=== PATIENT | male | born 1955 | race Caucasian/White ===

== ENCOUNTER 2022-11-26 11:24 | Outpatient (CLI) | payer MEDICARE, SELFPAY ==
[2022-11-26 12:04] LABS: Appearance Urine Clear (Clear); Bilirubin Urine Negative (Negative); Blood Urine Negative (Negative); Color Urine Light Yellow (Yellow); Glucose Urine UA Negative (Negative); Ketones Urine Negative (Negative); Leukocyte Esterase Ur Negative (Negative); Nitrate Urine Negative (Negative); Protein Urine Negative (Negative)
[2022-11-26 12:05] LABS: Add Urine Microscopic? NO
[2022-11-26 13:11] LABS: Prostate Specific Antigen 1.2 ng/mL (< OR = 4.0); Thyroid Stimulating Hormone 3.29 uIU/mL (0.36-3.74); Vitamin B12 312 pg/mL (193-986)
[2022-11-27 15:38] LABS: Free T3 2.91 pg/mL (2.18-3.98)
[2022-11-29 16:51] LABS: RPR Screen Non-Reactive (Non-Reactive)
== END 2022-11-26 11:25 | disposition home or self-care (01) ==
PROVIDERS: PCP Internal Medicine; Visit Provider Internal Medicine
DX: N39.0 Urinary tract infection, site not specified (principal); R41.3 Other amnesia; N41.9 Inflammatory disease of prostate, unspecified
CPT/HCPCS: 36415; 81003; 82607; 84153; 84439; 84443; 84481; 86038; 86592; 87077; 87086; 87088; 87186

== ENCOUNTER 2022-11-29 08:13 | Outpatient (CLI) | payer MEDICARE, SELFPAY ==
--- NOTE | ~2022-11-29 | MR_ITS ---
MRI of the brain Clinical History: Vertigo Technique: Axial and sagittal T1-weighted images were acquired. These were followed by axial T2-weigh bre, diffusion weighted, gradient, and FLAIR images. Coronal thin cut T1-weighted and T2-weighted dangelo ges, and thin cut axial T2-weighted images were acquired through the internal auditory canals. Findings: No significant signal abnormality seen in the brain parenchyma. No acute infarct, intracran ial hemorrhage, or mass lesion identified. Ventricles and subarachnoid spaces are unremarkable. Orbits are unremarkable. Paranasal sinuses and m astoid air cells are clear. Major intracranial flow voids appear intact. Sagittal midline structures appear intact. No abnormal mass lesion seen at the internal auditory canals or cerebellopontine angle regions. IMPRESSION: Unremarkable exam. Consider postcontrast imaging to further evaluate for any possibility of small aco ustic neuroma. Reviewed, dictated and finalized at [facility]. IMPRESSION: Unremarkable exam. Consider postcontrast imaging to further evaluate for any po ssibility of small acoustic neuroma.
== END 2022-11-29 08:14 | disposition home or self-care (01) ==
LOC: CHSIMG 08:14
PROVIDERS: PCP Internal Medicine; Visit Provider Internal Medicine
DX: R42 Dizziness and giddiness (principal)
CPT/HCPCS: 70551

== ENCOUNTER 2023-05-20 14:50 | Outpatient (CLI) | payer MEDICARE, SELFPAY ==
--- NOTE | ~2023-05-20 | XR_ITS ---
EXAMINATION: XR shoulder LT min 2V DATE: 05/20/2023 15:14 INDICATION: Left shoulder pain. TECHNIQUE: 4 views of left shoulder were obtained. COMPARISON: None. FINDINGS: Bone alignment is normal. No fracture. There is mild osteoarthritis of glenohumeral joint a nd moderate osteoarthritis of acromioclavicular joint. There are surgical clips in left neck. IMPRESSION: 1. Polyarticular osteoarthritis. Reviewed, dictated and finalized at location E. 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
== END 2023-05-20 14:51 | disposition home or self-care (01) ==
PROVIDERS: PCP Internal Medicine; Visit Provider Internal Medicine
DX: M19.012 Primary osteoarthritis, left shoulder (principal); M25.512 Pain in left shoulder
CPT/HCPCS: 73030

== ENCOUNTER 2023-05-21 08:23 | Outpatient (CLI) | payer MEDICARE, SELFPAY ==
--- NOTE | ~2023-05-21 | MR_ITS ---
MRI of the left shoulder Technique: Axial proton-density fat-sat images, coronal proton density fat-sat and T2 fat-sat images, and sagittal T1-weighted and T2 fat-sat images were acquired. Clinical History: Pain Findings: There is moderate AC joint degenerative change. No significant subchondral spur. Coracoclav icular, coracoacromial, and coracohumeral ligaments are probably intact. Supraspinatus and infraspinatus tendons are intact, without partial or full-thickness tear. There is mild tendinosis. Subscapularis tendon is intact with mild tendinosis. Tendon of the long head of the biceps is intact, probable focal perching at the superior aspect of the bicipital groove. There is probable degenerative tear of the superior labrum. Remainder of the labrum is intact. There is thickening and increased signal of the inferior glenohumeral ligament. No degenerative luna e or effusion of the glenohumeral joint. No fluid distention of the subacromial/subdeltoid bursa. No muscle atrophy or edema. Impression: Probable degenerative tear of the superior labrum. Thickening and increased signal inferior glenohumeral ligament could reflect before meals capsulitis. Correlate clinically. Moderate AC joint degenerative change. Probable focal perching of the biceps tendon at the superior aspect of the bicipital groove. Reviewed, dictated and finalized at [facility]. 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 Thickening and increased signal inferior glenohumeral ligament could reflect be fore meals capsulitis. Correlate clinically. Moderate AC joint degenerative change. Probable focal perching of the biceps tendon at the superior aspect of the bici pital groove.
== END 2023-05-21 08:24 | disposition home or self-care (01) ==
LOC: CHSIMG 08:24
PROVIDERS: PCP Internal Medicine; Visit Provider Internal Medicine
DX: M25.512 Pain in left shoulder (principal)
CPT/HCPCS: 73221

== ENCOUNTER 2023-06-15 10:00 | Outpatient (RCR) | payer MEDICARE, SELFPAY ==
--- NOTE | 2023-06-15 10:29 | PTOPEVAL1 ---
Assessment and note entered by Len Marquez Evaluation Information Assessment Status Evaluation Diagnosis left shoulder pain Onset 04/01/23 Subjective Information Pt. reports that he injured the shoulder in early April. He states that he has prior hx of left shoulder pain. He has undergone MRI, which he states showed a rotator cuff tear. He states that any activity reaching overhead or with attempting to wash his hair will trigger his pain. He reports that the pain has been improving in the recent weeks, but still has concern with inability to reach overhead. He states that he currently has little trouble sleeping, but did have a lot of difficulty sleeping during the initial injury. He reports that his goal for therapy is to reduce his pain and be able to reach overhead with more mobility. Reported Pain Level Pain Score 2: Self Report Assessment PT Clinical Summary Pt. 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 He currently presents with impaired ROM, impaired strength, impaired postural awareness, and pain. Continued skilled PT is indicated in order to improve these areas to allow the pt. to be able to perform overhead activities with less discomfort and improved efficiency. Plan of Care Interventions Electrical Stimulation,Hot Pack/Cold Pack,Manual Therapy,Paraffin Bath,Patient/Caregiver Educati, Therapeutic Activities,Therapeutic Exercise PT Services Indicated Yes Treatment Frequency and 2x/week x 8 visits Duration These treatments will address the objective and functional deficits as defined above. The patient will be advanced safely and appropriately in order for the patient to progress towards his/her prior level of function. Additional exercises will be introduced and as well as a comprehensive home exercise program upon discharge, if needed, ?to ensure carryover of functional gains achieved in the clinic. This treatment plan has been reviewed and agreement upon by the patient.
--- NOTE | 2023-06-15 10:52 | OPREHPOC ---
Outpatient Therapy Plan of Care This is a Multidisciplinary Plan of Care that may contain components documented by all disciplines (PT, OT, and ST.) PT Problem 1 PT Problem #1 Knowledge Deficit PT Goal 1 Goal Pt. will be independent with a HEP addressing strength, ROM and postural awareness Target Visit 3 PT Problem 2 PT Problem #2 Pain PT Goal 1 Goal Pt. will report pain levels at 1/10 at worst with all overhead activities. Target Visit 8 PT Problem 3 PT Problem #3 Impaired Range of Motion PT Goal 1 Goal -Pt. will achieve 170 degrees active left shoulder flexion without pain -Pt. will be able to reach the CT junction with the left arm demonstrating improved ER ROM. Target Visit 8 PT Problem 4 PT Problem #4 Impaired Strength PT Goal 1 Goal Pt. will be able to lift a 10# object overhead with the left u.e. without pain for 10 reps. Target Visit 8
--- NOTE | 2023-07-10 10:56 | OPREHPOC ---
Outpatient Therapy Plan of Care This is a Multidisciplinary Plan of Care that may contain components documented by all disciplines (PT, OT, and ST.) PT Problem 1 PT Problem #1 Knowledge Deficit PT Goal 1 Goal Pt. will be independent with a HEP addressing strength, ROM and postural awareness Target Visit 3 Progress Met PT Problem 2 PT Problem #2 Pain PT Goal 1 Goal Pt. will report pain levels at 1/10 at worst with all overhead activities. Target Visit 8 Progress Met PT Problem 3 PT Problem #3 Impaired Range of Motion PT Goal 1 Goal -Pt. will achieve 170 degrees active left shoulder flexion without pain. not met -Pt. will be able to reach the CT junction with the left arm demonstrating improved ER ROM. met Target Visit 8 Progress Partially Met PT Problem 4 PT Problem #4 Impaired Strength PT Goal 1 Goal Pt. will be able to lift a 10# object overhead with the left u.e. without pain for 10 reps. Target Visit 8 Progress Met
--- NOTE | 2023-07-10 10:56 | PTOPDC ---
Assessment and note entered by JT File, PT Evaluation Information Assessment Status Discharge Diagnosis left shoulder pain Onset 04/01/23 Subjective Information patient reports he feels good today. he reports he has no pain in the L shoulder. he reports he is able to complete home and work tasks without pain . Reported Pain Level Pain Score 0: Self Report Assessment PT Clinical Summary mr. foley presents to skilled PT today with no pain in the L shoulder. he displays increased rom and strength of the L shoulder. as of this date, he has met all goals for skilled PT, except L shoulder active flexion goal. however, he is only 5 degrees from achieving this goal. patient is at the end of his POC. he will be DC'd from skilled PT services today, and would benefit from continued independent HEP. Plan of Care PT Services Indicated Yes
== END 2023-07-10 20:00 | disposition home or self-care (01) ==
LOC: CHSPT 10:00
PROVIDERS: PCP Internal Medicine; Visit Provider Internal Medicine
DX: M25.512 Pain in left shoulder (principal); M25.612 Stiffness of left shoulder, not elsewhere classified; M75.42 Impingement syndrome of left shoulder; M19.012 Primary osteoarthritis, left shoulder
CPT/HCPCS: 97014; 97110; 97112; 97161; G0283

== ENCOUNTER 2024-02-09 15:58 | Outpatient (CLI) | payer MEDICARE, SELFPAY ==
--- NOTE | ~2024-02-09 | XR_ITS ---
EXAM: XR knee LT 3V DATE: 02/09/2024 16:32 HISTORY: L KNEE PAIN, twisted knee 2 days ago and heard pop noise . COMPARISON: 02/15/2014. FINDINGS: Slightly decreased mineralization. No fracture or dislocation. No lytic or blastic lesion. Mild medial joint space narrowing. Mild tricompartmental osteophytosis. Quadriceps enthesopathy. Min imal joint fluid. Chronic ossific fragment adjacent to the medial condyle possibly soft tissue calcif ication/ossification or old avulsion fracture fragment. No erosion or periosteal change. Soft tissues within normal limits. IMPRESSION: No acute osseous finding the left knee. Mild osteopenia. Mild tricompartmental osteoarthr itis. Mild left knee joint effusion. Reviewed, dictated and finalized at location K. IMPRESSION: No acute osseous finding the left knee. Mild osteopenia. Mild trico mpartmental osteoarthritis. Mild left knee joint effusion.
== END 2024-02-09 15:59 | disposition home or self-care (01) ==
LOC: CHSIMG 16:00
PROVIDERS: PCP Internal Medicine; Visit Provider Internal Medicine
DX: M25.562 Pain in left knee (principal); M17.0 Bilateral primary osteoarthritis of knee; M25.462 Effusion, left knee; M85.88 Other specified disorders of bone density and structure, other site
CPT/HCPCS: 73562

== ENCOUNTER 2024-02-11 07:31 | Outpatient (CLI) | payer MEDICARE, SELFPAY ==
--- NOTE | ~2024-02-11 | MR_ITS ---
EXAMINATION: MR knee LT wo con DATE: 02/11/2024 08:32 INDICATION: Left knee pain post twisting injury TECHNIQUE: Magnetic resonance imaging (MRI) of the left knee was performed without intravenous contra st. Sequences included coronal PD-weighted FSE, coronal PD-weighted FS FSE, sagittal T2-weighted FSE , sagittal PD-weighted FS FSE and axial PD weighted fat saturated FSE. COMPARISON: None. FINDINGS: Medial compartment: Radial tear near the posterior root of the posterior horn of the medial meniscus. Chondral swelling a nd deep chondral fissuring along the lateral margin of the anterior weightbearing medial femoral cond yle with underlying small central subchondral osteophyte. Lateral compartment: Lateral meniscus is normal. Articular cartilage is normal. Patellofemoral compartment: Deep chondral ulceration at the patellar apical ridge and lateral patellar facet, the latter with mil d underlying cortical irregularity and foci of mild subarticular edema-like signal changes. Additiona l partial-thickness chondral ulceration and deep fissuring with a couple tiny foci of subarticular cy stlike changes at the medial trochlea. Ligaments and tendons: Anterior and posterior cruciate ligaments are normal. The medial collateral ligament and fibular girish ateral ligament complex are normal. Mild tendinopathy distal quadriceps and proximal patellar tendons . The visualized medial and lateral hamstring tendons as well as the iliotibial band are normal. Fluid: Minimal left knee joint effusion. No loose osteochondral bodies identified. Osseous/other: A few small intraosseous ganglion cyst underlying the footplate of the anterior cruciate ligament. No rmal marrow signal throughout secondary placement degenerative subarticular signal changes. No fractu re or pathologic marrow replacing process. IMPRESSION: 1. Full-thickness radial tear at the posterior horn of the medial meniscus. 2. Mild osteoarthritis with regions of high-grade chondral malacia in patellofemoral and to lesser de gree medial compartments. Reviewed, dictated and finalized at location B. IMPRESSION: 1. Full-thickness radial tear at the posterior horn of the medial meniscus. 2. Mild osteoarthritis with regions of high-grade chondral malacia in patellofe moral and to lesser degree medial compartments.
== END 2024-02-11 07:32 | disposition home or self-care (01) ==
LOC: CHSIMG 07:34
PROVIDERS: PCP Internal Medicine; Visit Provider Internal Medicine
DX: M25.562 Pain in left knee (principal); S83.242A Other tear of medial meniscus, current injury, left knee, initial encounter; M17.12 Unilateral primary osteoarthritis, left knee; M94.262 Chondromalacia, left knee
CPT/HCPCS: 73721

== ENCOUNTER → 2024-06-07 13:29 | Outpatient (REF) | payer MEDICARE, SELFPAY | LOC: ANHLAB 13:29 | PROVIDERS: PCP Internal Medicine; Visit Provider Plastic Surgery | DX: L91.8 Other hypertrophic disorders of the skin (principal) | CPT/HCPCS: 88305 ==

== ENCOUNTER 2024-06-30 10:00 | Outpatient (CLI) | payer MEDICARE, SELFPAY ==
--- NOTE | 2024-06-30 10:13 | ECG_ITS ---
Test Date: 2024-06-30 10:24:50 Measurements Intervals [place] Rate: 70 P: 52 DE: 184 QRS: -37 QRSD: 166 T: -7 QT: 395 QTc: 428 Interpretive Statements SINUS RHYTHM MARKED LEFT AXIS DEVIATION [QRS AXIS < -30] RIGHT BUNDLE BRANCH BLOCK [120+ ms QRS DURATION, UPRIGHT V1, 40+ ms S IN I/aVL/V4/V5/V6] WARNING: DATA QUALITY MAY AFFECT INTERPRETATION No previous ECG available for comparison Electronically Signed On 06-30-2024 11:46:57 DRUG WORKER by Facundo Tidwell M.D.
--- OUTSIDE RECORDS SUMMARY | 2024-06-30 10:49 | XMS_ITS | Encounter Summary ---
Author Organization [facility] Healthcare Address [address] [place] [address] Care Team Providers Care Retail Manager Name Role Phone Antonio Ren MD Primary Care Provider [phone] Reason for Visit * Reason Onset Date Comments Med Refill 07/11/2020 Encounter Details Date Type Department Care Team (Late st Contact Info) Description 07/11/2020 Telephone [facility] [place] [facility] [address] [facility] [address] [place] [address] Owen Laguerre MD [address] [place] [address] Med Refill Social History Tobacco Use Types Packs/Day Years Used Date Smoking Tobacco: Former Smokeless Tobacco: Never Alcohol Use Standard Drinks/Week Comments No 0 (1 standard drink = 0.6 oz pur e alcohol) Sex and Gender Information Value Date Recorded Sex Assigned at Not on file 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 Author CCM Chronic Pain Care Plan Chronic Care Management Improving( 9:34 AM CDT) No Carey Keyes RN Note: Problem: Chronic Pain Goals: 1. Minimize further functional decline 2. Maximize quality of life 3. Control pain Strategies: - Activity/exercise program recommendation - Conservative stepwise pain medicine strategy with multi-disciplinary approach - Recommend healthy lifestyle strategies and compensatory methods as needed documented as of this encounter Visit Diagnoses Not on filedocumented in this encounter Discontinued Medications Medication Sig Discontinue Reason Start Date End Da te gabapentin (NEURONTIN) 600 mg tablet Take 1 tablet (600 mg total) by mouth 3 (three) times a day Reorder 09/14/2019 07/11/2020 documented as of this encounter Care Teams Retail Manager Relationship Specialty Start Date End Date Antonio Ren MD [address] [place] [address] PCP - General 07/29/16 documented as of this encounter
--- OUTSIDE RECORDS SUMMARY | 2024-06-30 10:49 | XMS_ITS | Encounter Summary ---
Author Organization [facility] Healthcare Address [address] [place] [address] Care Team Providers Care Instrumentation Engineering Technician Name Role Phone Antonio Ren MD Primary Care Provider [phone] Reason for Visit * Reason Onset Date Comments CALL BACK 11/03/2017 Encounter Details Date Type Department Care Team (Late st Contact Info) Description 11/03/2017 Telephone [facility] [place] [facility] [address] [facility] [address] [place] [address] Owen Laguerre MD [address] [place] [address] CALL BACK Social History Tobacco Use Types Packs/Day Years Used Date Smoking Tobacco: Former Sex and Gender Information Value Date Recorded Sex Assigned at Not on file 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
--- OUTSIDE RECORDS SUMMARY | 2024-06-30 10:49 | XMS_ITS | Clinical Summary ---
Author Organization [facility] Address [address] [place] [address] Care Team Providers Care Percussion Tuner Name Role Phone Antonio Ren MD Primary Care Provider + [phone] Allergies Active Allergy Reactions Criticality Noted Date Comments Penicillins Unknown 06/19/2010 Medications aspirin 81 mg tablet Take 1 tablet (81 mg total) by mouth daily Active tamsulosin (FLOMAX) 0.4 mg extended release capsule Take 2 capsules (0.8 mg total) by mouth daily Active omeprazole (PriLOSEC) 40 mg capsule Take 1 capsule (40 mg total) by mouth daily 2 capsules daily 1 Active pravastatin (PRAVACHOL) 80 mg tablet Take 1 tablet (80 mg total) by mouth daily Active cholecalciferol (VITAMIN D-3) 1,000 unit capsule Take 1 capsule (1,000 Units total) by mouth daily Active celecoxib (CeleBREX) 200 mg capsule Take 1 capsule (200 mg total) by mouth daily 9 Active gabapentin (NEURONTIN) 600 mg tablet TAKE ONE TABLET BY MOUTH THREE TIMES A DAY 270 tablet 1 2 Active Myrbetriq 25 mg tablet extended release 24 hr TAKE 1 TABLET (25 MG) BY MOUTH EVERY DAY SWALLOWING WHOLE WITH WATER . DO NOT CRUSH, CHEW, DIVIDE 3 Active magnesium gluconate 200 mg tabletIndicatio ns:Cramps Take 1 tablet (200 mg total) by mouth daily Active traMADoL (ULTRAM) 50 mg tablet Take 1 tablet (50 mg total) by mouth every 6 (six) hours as needed for pain 10 tablet 4 Active ciprofloxacin (CIPRO) 500 mg tablet Take 1 tablet (500 mg total) by mouth 2 (two) times a day 6 tablet 4 Active Active Problems Problem Noted Date Diagnosed Date Urethral stricture 01/21/2024 Encounter for follow-up surveillance of colon ca ncer 12/11/2022 Chronic bilateral low back pain without sciatica 12/01/2019 Flores's esophagus with dysplasia 08/10/2018 Overview (08/10/2018): Added automatically from request for surgery [id number] Low back pain with right-sided sciatica 09/24/19 Cervical radiculopathy 10/03/2016 Stenosis, cervical spine 10/03/2016 Lumbar spondylosis 08/29/2016 Cervicalgia 04/09/2016 Thoracic back pain 04/09/2016 Chronic pain 04/04/2016 Surgical History Surgery Date Site/Laterality Comments MS NJX AA&/STRD TFRML EPI LUMBAR/SACRAL 1 LEVEL Corticosteroid Inj Transforaminal Approach Lumbar W/ Fluoroscopic Guidance - Right L4-L5 (Added by TW Conv) MS INJ CERV/THORAC,W/WO CNTRST Corticosteroid Injection Interlaminar Approach Cervical - (Added by TW Conv) MS INJ CERV/THORAC,W/WO CNTRST Corticosteroid Injection Interlaminar Approach Cervical - (Added by TW Conv) MS INJ LUMBAR/SACRAL,W/WO CNTRST Corticosteroid Injection Interlaminar Approach Lumbar - (Added by TW Conv) MS NJX AA&/STRD TFRML EPI CERVICAL/THORACIC 1 LEVEL Corticosteroid Inj Transforaminal Approach Cervical W/ Fluoroscopic Guidance - cervical epidural steroid injection with theracath (Added by TW Conv) FOOT SURGERY Left 2013, 2014 ABDOMINAL HERNIA REPAIR TONSILLECTOMY Medical History Medical History Date Comments Chronic pain GERD (gastroesophageal reflux disease) SOB (shortness of breath) dust i nduced BPH (benign prostatic hyperplasia) Low back pain HLD (hyperlipidemia) Flores esophagus Colon polyp Kidney stone Traumatic injury Family History Medical History Relation Name Comments Arthritis Father Family history of arthritis - (Added by TW Conv) Asthma Father Family history of asthma - (Added by TW Conv) Colon cancer Maternal Grandmother Heart attack Mother Family history of myocardial infarction - (Added by TW Conv) Arthritis Other 1 Family history of arthritis - Relation: Grandparent (Added by Groxis Conv) Colon cancer Other 1 Cancer Other 2 Family history of malignant neoplasm - Relation: Grandparent (Added by Groxis Conv) Relation Name Status Comments Father Maternal Grandmother Mother Other 1 Maternal Aunt Other 2 Social History Tobacco Use Types Packs/Day Years Used Date Smoking Tobacco: Former Smokeless Tobacco: Never Tobacco Cessation:Counseling Given: Not Answered Alcohol Use Standard Drinks/Week Comments No 0 (1 standard drink = 0.6 oz pur e alcohol) AUDIT-C Answer Date Recorded Q1: How often do you have a drink containing alcohol? Never 02/17/2024 Q2: How many drinks containi ng alcohol do you have on a typical day when you are drinking? Patient does not drink Q3: How often do you have si x or more drinks on one occasion? Never 02/17/2024 Hunger Vital Sign Answer Date Recorded Within the past 12 months, y ou worried that your food would run out before you got the money to buy more. Never true 08/05/19 24 Within the past 12 months, t he food you bought just didn't last and you didn't have money to get more. Never true 08/05/2023 Personal Safety Answer Date Recorded Have you ever been in or are you currently in a harmful physical or emotional relationship or is someone making you feel afraid or unsafe? 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 Gender Identity Not on file Sexual Orientation Not on file Obstetrics History Last Filed Vital Signs Vital Sign Reading Time Taken Comments Blood Pressure 140/100 02/17/2024 11:25 AM CDT Pulse 74 02/17/2024 11:25 AM CDT Temperature 36.9 ??C (98.5 ??F) 02/17/2024 10:15 AM C DT Respiratory Rate 24 02/17/2024 11:25 AM CDT Oxygen Saturation 100% 02/17/2024 11:25 AM CDT Inhaled Oxygen Concentration - - Weight 141.5 kg (312 lb) 02/17/2024 9:25 AM CDT Height 182.9 cm (6') 02/17/2024 9:25 AM CDT Body Mass Index 42.31 02/17/2024 9:25 AM CDT Plan of Treatment Health Maintenance Due Date Last Done Comments Depression Screening 1955 Hepatitis C Screening 1955 Hepatitis B Screening 02/02/1972 Abdominal Aortic Aneurysm (A AA) Screen 2019 04/08/2016, 09/22/2014 Well Visit 65+ 2019 Pneumococcal vaccine 65+ (3 of 3 - PPSV23 or PCV20) 03/07/2021 03/07/2016, 01/25/2014 DTaP/Tdap/Td Vaccine (2 - Td or Tdap) 06/20/2023 06/20/2013 Influenza Vaccine (#1) 2024 , 03/29/2018, 01/28/2017, Additional history exists Fall Risk Assessment 02/16/2025 02/17/2024 Colon Cancer Screening-Colonoscopy 02/25/2033 02/25/2023 Zoster Vaccine Completed 11/18/2018, 10/2018, 02/15/2014 Colon Cancer Screening-CT Colonography Discontinued 02/25/2023 Colon Cancer Screening-DNA Stool Discontinued 02/26/20 Colon Cancer Screening-FIT Discontinued 02/25/2023 Colon Cancer Screening-Sigmoidoscopy Discontinued 02/25/2023 Goals Goal Patient Goal Type Associated Problems Recent Progress Patient-Stated? Author CCM Chronic Pain Care Plan Chronic Care Management Improving( 9:34 AM CDT) No Sulema staples, Carey Johnston, RN Note: Problem: Chronic Pain Goals: 1. Minimize further functional decline 2. Maximize quality of life 3. Control pain Strategies: - Activity/exercise program recommendation - Conservative stepwise pain medicine strategy with multi-disciplinary approach - Recommend healthy lifestyle strategies and compensatory methods as needed Procedures Procedure Name Priority Date/Time Associated Diagnosis Comments COLONOSCOPY 02/25/2023 3:[address] ABDOMEN PELVIS W WO CONTRAST Routine 04/08/2016 4:35 PM SEAMING MACHINE OPERATOR from Last 3 Months or Most Recently Relevant to Health Maintenance Results * COLONOSCOPY (02/25/2023 3:39 PM CDT) Anatomical Region Laterality Modality Other Narrative Procedure Note Roland Cerrato MD - 02/25/2023 3:39 PM CDT ENDOSCOPY LAB Patient Name: Jon Martin Procedure Date: 02/25/2023 3:39 PM Date of : 1955 Admit Type: Outpatient Age: 68 Gender: Male Attending MD: Roland Cerrato M.D. Room: [facility] ENDOSCOPY ROOM 04 Note Status: Finalized Procedure: Colonoscopy Indications: High risk colon cancer surveillance: Personalhistory of colonic polyps, Last colonoscopy 5 years ago Providers: Roland Cerrato M.D. Referring MD: Antonio Ren MD Medicines: Monitored Anesthesia Care Complications: No immediate complications. Estimated Blood Loss: Estimated blood loss: none. Procedure: Pre-Anesthesia Assessment: - Immediately prior to administration ofmedications, the patient was re-assessed for adequacy to receive sedatives. The benefits, risks and alternatives of theprocedure and sedation were discussed and informed consentwas obtained. All questions were answered. Please referto the signed informed consent document in the medical record. The scope was passed under direct vision.The [id number] was introduced through the anusand advanced to the cecum, identified by appendiceal orifice and ileocecal valve. The colonoscopy was performed without difficulty. The patient tolerated the procedure well. The quality of the bowel preparation was evaluated using the BBPS (BostonBowel Preparation Scale) with scores of: Right Colon = 3, Transverse Colon = 3 and Left Colon = 3 (entiremucosa seen well with no residual staining, smallfragments of stool or opaque liquid). The total BBPS score equals 9. Bowel prep was administered using a split dose. Findings: The perianal and digital rectal examinations were normal. Two sessile polyps were found in the transverse colon. The polypswere 6 to 8 mm in size. These polyps were removed with a cold snare.Resection and retrieval were complete. Multiple small-mouthed diverticula were found in the sigmoid colon. The exam was otherwise without abnormality on direct and retroflexion views. Impression: - Two 6 to 8 mm polyps in the transverse colon, removed with a cold snare. Resected andretrieved. - Diverticulosis in the sigmoid colon. - The examination was otherwise normal on directand retroflexion views. Recommendation: - Repeat colonoscopy in 5 years for surveillance. - Return to primary care physician as previously scheduled. - Call my nurses in the GI office at [phone] ([phone]) for your final pathology results in7 days. - . Attending Participation: I personally performed the entire procedure. Electronically signed by Roland Cerrato MD Roland Cerrato M.D. 02/25/2023 4:03:20 PM Number of Addenda: 0 Note Initiated On: 02/25/2023 3:39 PM us Roland Cerrato MD ENDOSCOPY PROCEDUR ES Final Result * CT Abdomen Pelvis W WO Contrast (04/08/2016 4:35 PM SEAMING MACHINE OPERATOR) Anatomical Region Laterality Modality Body N/A Computed Tomogra phy 04/08/2016 4:35 PM SEAMING MACHINE OPERATOR Narrative 04/09/2016 8:24 AM SEAMING MACHINE OPERATOR DATE OF EXAM: ??Nov ??8 2015 ??4:35PM Acc#: ??[id number] ??ECT 0108 - CT IVP Urogram W/WO ?? DIAGNOSIS: ??BENIGN PROSTATIC HYPERPLASIA WITH LOWER CLINICAL HISTORY: ?? BENIGN PROSTATE HYPERTROPHY RESULT: \ CT UROGRAM CLINICAL HISTORY 61-year-old man with benign prostatic hypertrophy, constant urinary tract infections every three months. Examination performed using standard CT urography with 125 mL of Optiray 240. FINDINGS Comparison is made with the study of 09/22/2014. ??Normal wringer and setter radiograph. Precontrasted images demonstrate a calculus near the lower pole of the right kidney, non-obstructive and similar to previous measuring between 3 and 4 mm in size. Calcific density seen within the right colon. No gallstones are seen. Following contrast bolus, the visualized portions of the liver and spleen are normal. The pancreas is atrophic. The gallbladder is normal. Normal adrenal glands. The nephrograms are symmetric and normal without mass effect or hydronephrosis. The perinephric soft tissues are normal. Normal vascular enhancement is seen with minor atherosclerotic changes. In the pelvis, there is evidence of sigmoid diverticulosis. Calcifications are seen within the prostate which is mildly prominent. The urinary bladder is underfilled on the initial imaging. Delayed imaging demonstrates excretion from both kidneys without hydronephrosis. No free fluid or free air is seen. The ureters are normal in course and there is prompt opacification of a nondistended urinary bladder. 3D images confirm a non-obstructive renal system. IMPRESSION: ?\ NON-OBSTRUCTIVE CALCULUS STABLE AT THE LOWER POLE OF THE RIGHT KIDNEY. CALCIFIC DENSITIES WITHIN THE PROSTATE WHICH IS MILDLY ENLARGED. THE URINARY BLADDER IS UNDER FILLED WITH THE INABILITY TO MAKE DIAGNOSTIC VALUE OF THE STUDY WITH REFERENCE TO THE BLADDER. INSTRUCTIONAL AIDE: ??DM2 TRANSCRIBE DATE/TIME: ??Nov ??8 2015 ??8:03P RADIOLOGIST: ??ZAY HERNÁNDEZ M.D. ??READ ON: ??Nov ??2015 ??5:04P ORDERING DR: FIDENCIO EAST M.D. ? THIS DOCUMENT HAS BEEN ELECTRONICALLY SIGNED BY: ??ZAY HERNÁNDEZ M.D. ??ON: ??Nov ??2015 ??8:23A Attending: ??RCUZITO, ??FIDENCIO Requesting: ??CRUZITO, ??FIDENCIO Requesting Fax: ??[phone] Attending Fax: ??[phone] Attending ID: ??[id number] Requesting ID: ??[id number] Report To 1 ID: ?? Report To 1 Name: ??, ?? Report To 1 FAX: ??-- Report To 2 ID: ?? Report To 2 Name: ??, ?? Report To 2 FAX: ??-- NextGen Order #: ?? Procedure Note Provider, MD Whitney - 10/06/2016 DATE OF EXAM: Apr 08 2016 4:35PM Acc#: [id number] ECT 0108 - CT IVP Urogram W/WO DIAGNOSIS: BENIGN PROSTATIC HYPERPLASIA WITH LOWER CLINICAL HISTORY: BENIGN PROSTATE HYPERTROPHY RESULT: \ CT UROGRAM CLINICAL HISTORY 61-year-old man with benign prostatic hypertrophy, constant urinary tract infections every three months. Examination performed using standard CT urography with 125 mL of Optiray 240. FINDINGS Comparison is made with the study of 09/22/2014. Normal wringer and setter radiograph. Precontrasted images demonstrate a calculus near the lower pole of the right kidney, non-obstructive and similar to previous measuring between 3 and 4 mm in size. Calcific density seen within the right colon. No gallstones are seen. Following contrast bolus, the visualized portions of the liver and spleen are normal. The pancreas is atrophic. The gallbladder is normal. Normal adrenal glands. The nephrograms are symmetric and normal without mass effect or hydronephrosis. The perinephric soft tissues are normal. Normal vascular enhancement is seen with minor atherosclerotic changes. In the pelvis, there is evidence of sigmoid diverticulosis. Calcifications are seen within the prostate which is mildly prominent. The urinary bladder is underfilled on the initial imaging. Delayed imaging demonstrates excretion from both kidneys without hydronephrosis. No free fluid or free air is seen. The ureters are normal in course and there is prompt opacification of a nondistended urinary bladder. 3D images confirm a non-obstructive renal system. IMPRESSION: \ NON-OBSTRUCTIVE CALCULUS STABLE AT THE LOWER POLE OF THE RIGHT KIDNEY. CALCIFIC DENSITIES WITHIN THE PROSTATE WHICH IS MILDLY ENLARGED. THE URINARY BLADDER IS UNDER FILLED WITH THE INABILITY TO MAKE DIAGNOSTIC VALUE OF THE STUDY WITH REFERENCE TO THE BLADDER. INSTRUCTIONAL AIDE: JENNIFER TRANSCRIBE DATE/TIME: Apr 08 2016 8:03P RADIOLOGIST: ZAY HERNÁNDEZ M.D. READ ON: Apr 08 2016 5:04P ORDERING DR: FIDENCIO EAST M.D. THIS DOCUMENT HAS BEEN ELECTRONICALLY SIGNED BY: ZAY HERNÁNDEZ M.D. ON: Apr 09 2016 8:23A Attending: FIDENCIO EAST Requesting: FIDENCIO EAST Requesting Attending Attending ID: [id number] Requesting ID: [id number] Report To 1 ID: Report To 1 Name: , Report To 1 FAX: -- Report To 2 ID: Report To 2 Name: , Report To 2 FAX: -- NextGen Order #: us Historical Provider MD MOREJON CT PROCEDURES Final R esult from Last 3 Months or Most Recently Relevant to Health Maintenance Insurance [employer] [facility] [employer] OPEN ACCESS MEDICARE COMMERCIAL GENERIC MEDICARE INDIVIDUAL ASSURANCE MEDICARE INDIVIDUAL ASSURANCE Advance Directives For more information, please contact: [phone] * Full Code (Latest Code Status on File) Date Activated Date Inactivated Comments 02/25/2023 3:00 PM 02/25/2023 8:51 PM * Full Code Date Activated Date Inactivated Comments 06/19/2022 1:10 PM 02/25/2023 1:59 PM * Full Code Date Activated Date Inactivated Comments 10/24/2021 10:01 AM 10/24/2021 4:01 PM * Full Code Date Activated Date Inactivated Comments 08/17/2018 9:23 AM 08/17/2018 4:25 PM Care Teams Percussion Tuner Relationship Specialty Start Date End Date Antonio Ren MD [address] [id number] PCP - General 07/29/16
--- OUTSIDE RECORDS SUMMARY | 2024-06-30 10:49 | XMS_ITS | Encounter Summary ---
Author Organization [facility] Healthcare Address [address] [place] [address] Care Team Providers Care Senior Water/Wastewater Engineer Name Role Phone Antonio Ren MD Primary Care Provider + [phone] Encounter Details Date Type Department Care Team (Late st Contact Info) Description 10/16/2023 Community Orders [facility] [place] [address] [place] [id number] Social History Tobacco Use Types Packs/Day Years Used Date Smoking Tobacco: Former Smokeless Tobacco: Never Alcohol Use Standard Drinks/Week Comments No 0 (1 standard drink = 0.6 oz pur e alcohol) AUDIT-C Answer Date Recorded Q1: How often do you have a drink containing alcohol? Never 08/05/2023 Q2: How many drinks containi ng alcohol do you have on a typical day when you are drinking? Patient does not drink Q3: How often do you have si x or more drinks on one occasion? Never 08/05/2023 Hunger Vital Sign Answer Date Recorded Within [...] making you feel afraid or unsafe? 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 Author CCM Chronic Pain Care Plan Chronic Care Management Improving( 9:34 AM CDT) No Sulema staples, Carey Johnston RN Note: Problem: Chronic Pain Goals: 1. Minimize further functional decline 2. Maximize quality of life 3. Control pain Strategies: - Activity/exercise program recommendation - Conservative stepwise pain medicine strategy with multi-disciplinary approach - Recommend healthy lifestyle strategies and compensatory methods as needed documented as of this encounter Visit Diagnoses Not on filedocumented in this encounter Care Teams Senior Water/Wastewater Engineer Relationship Specialty Start Date End Date Antonio Ren MD [address] [place] [address] PCP - General 07/29/16 documented as of this encounter
--- OUTSIDE RECORDS SUMMARY | 2024-06-30 10:49 | XMS_ITS | Referral Summary ---
Author Organization [facility] Address [address] [place] [address] Care Team Providers Care Dry Man Name Role Phone Antonio Ren MD Primary Care Provider + [phone] Allergies Active Allergy Reactions Criticality Noted Date [...] (08/10/2018): Added automatically from request for surgery [id number] Low back pain with right-sided sciatica 09/24/19 Cervical radiculopathy 10/03/2016 Stenosis, cervical spine 10/03/2016 Lumbar spondylosis 08/29/2016 Cervicalgia 04/09/2016 Thoracic back pain 04/09/2016 Chronic pain 04/04/2016 Social History Tobacco Use Types Packs/Day Years [...] on file Legal Sex Male 1:00 AM MEDICAL 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 Gender Identity Not on file Sexual Orientation Not on file Last Filed Vital Signs Vital Sign Reading [...] 02/17/2024 9:25 AM CDT Plan of Treatment Not on file Goals Goal Patient Goal Type Associated Problems [...] W WO CONTRAST Routine 04/08/2016 4:35 PM MEDICAL SONOGRAPHER from Last 3 Months or Most Recently Relevant to Health Maintenance Results * COLONOSCOPY (02/25/2023 3:39 PM CDT) Anatomical Region Laterality Modality Other Narrative Procedure Note Roland Cerrato MD - 02/25/2023 3:39 PM CDT ENDOSCOPY LAB Patient Name: Jon Martin Procedure Date: 02/25/2023 3:39 PM Date of : 1955 Admit Type: Outpatient Age: 68 Gender: Male Attending MD: Roland Cerrato M.D. Room: [facility] ENDOSCOPY ROOM 04 Note Status: Finalized Procedure: [...] The scope was passed under direct vision.The [id number] was introduced through the anusand advanced to [...] my nurses in the GI office at [phone] ([phone]) for your final pathology results in7 days. - . Attending Participation: I personally performed the entire procedure. Electronically signed by Roland Cerrato MD Roland Cerrato M.D. 02/25/2023 4:03:20 PM Number of Addenda: 0 Note Initiated On: 02/25/2023 3:39 PM Roland Cerrato MD ENDOSCOPY PROCEDUR ES Final Result * CT Abdomen Pelvis W WO Contrast (04/08/2016 4:35 PM MEDICAL SONOGRAPHER) Anatomical Region Laterality Modality Body N/A Computed Tomogra phy 04/08/2016 4:35 PM MEDICAL SONOGRAPHER Narrative 04/09/2016 8:24 AM MEDICAL SONOGRAPHER DATE OF EXAM: ??Nov ??2015 ??4:35PM Acc#: ??[id number] ??ECT 0108 - CT IVP Urogram W/WO ?? DIAGNOSIS: ??BENIGN PROSTATIC HYPERPLASIA WITH LOWER CLINICAL HISTORY: ?? BENIGN PROSTATE HYPERTROPHY RESULT: \ CT UROGRAM CLINICAL HISTORY 61-year-old man with benign prostatic hypertrophy, constant urinary tract infections every three months. Examination performed using standard CT urography with 125 mL of Optiray 240. FINDINGS Comparison is made with the study of 09/22/2014. ??Normal child development associate teacher radiograph. Precontrasted images demonstrate a calculus near [...] THE STUDY WITH REFERENCE TO THE BLADDER. ELECTRONIC OPERATOR: ??DM2 TRANSCRIBE DATE/TIME: ??Nov ??8 2015 ??8:03P RADIOLOGIST: ??ZAY HERNÁNDEZ M.D. ??READ ON: ??Nov ??8 2015 ??5:04P ORDERING DR: FIDENCIO EAST M.D. ? THIS DOCUMENT HAS BEEN ELECTRONICALLY SIGNED BY: ??ZAY HERNÁNDEZ M.D. ??ON: ??Nov ??9 2015 ??8:23A Attending: ??CRUZITO, ??FIDENCIO Requesting: ??CRUZITO, ??FIDENCIO Requesting Fax: ??[phone] Attending Fax: ??[phone] Attending ID: ??[id number] Requesting ID: ??[id number] Report To 1 ID: ?? Report To 1 Name: ??, ?? Report To 1 FAX: ??-- Report To 2 ID: ?? Report To 2 Name: ??, ?? Report To 2 FAX: ??-- NextGen Order #: ?? Procedure Note Provider, MD Whitney - 10/06/2016 DATE OF EXAM: Apr 08 2016 4:35PM Acc#: [id number] ECT 0108 - CT IVP Urogram W/WO DIAGNOSIS: BENIGN PROSTATIC HYPERPLASIA WITH LOWER CLINICAL HISTORY: BENIGN PROSTATE HYPERTROPHY RESULT: \ CT UROGRAM CLINICAL HISTORY 61-year-old man with benign prostatic hypertrophy, constant urinary tract infections every three months. Examination performed using standard CT urography with 125 mL of Optiray 240. FINDINGS Comparison is made with the study of 09/22/2014. Normal child development associate teacher radiograph. Precontrasted images demonstrate a calculus near [...] THE STUDY WITH REFERENCE TO THE BLADDER. ELECTRONIC OPERATOR: JENNIFER TRANSCRIBE DATE/TIME: Apr 08 2016 8:03P RADIOLOGIST: ZAY HERNÁNDEZ M.D. READ ON: Apr 08 2016 5:04P ORDERING DR: FIDENCIO EAST M.D. THIS DOCUMENT HAS BEEN ELECTRONICALLY SIGNED BY: ZAY HERNÁNDEZ M.D. ON: Apr 09 2016 8:23A Attending: FIDENCIO EAST Requesting: FIDENCIO EAST Requesting Attending Attending ID: [id number] Requesting ID: [id number] Report To 1 ID: Report To 1 Name: , Report To 1 FAX: -- Report To 2 ID: Report To 2 Name: , Report To 2 FAX: -- NextGen Order #: Historical Provider MD MOREJON CT PROCEDURES Final R esult from Last 3 Months or Most Recently Relevant to Health Maintenance Insurance [employer] [facility] [employer] OPEN ACCESS MEDICARE COMMERCIAL GENERIC MEDICARE INDIVIDUAL ASSURANCE MEDICARE INDIVIDUAL ASSURANCE Advance Directives For more information, please contact: [phone] * Full Code (Latest Code Status on File) Date Activated Date Inactivated Comments 02/25/2023 3:00 PM 02/25/2023 8:51 PM * Full Code Date Activated Date Inactivated Comments 06/19/2022 1:10 PM 02/25/2023 1:59 PM * Full Code Date Activated Date Inactivated Comments 10/24/2021 10:01 AM 10/24/2021 4:01 PM * Full Code Date Activated Date Inactivated Comments 08/17/2018 9:23 AM 08/17/2018 4:25 PM Care Teams Dry Man Relationship Specialty Start Date End Date Antonio Ren MD [address] [place] [address] PCP - General 07/29/16
--- OUTSIDE RECORDS SUMMARY | 2024-06-30 10:49 | XMS_ITS | Encounter Summary ---
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
== END 2024-06-30 10:01 | disposition home or self-care (01) ==
LOC: ANHSURGERY 10:05
PROVIDERS: PCP Internal Medicine; Visit Provider Orthopaedic Surgery
DX: E78.00 Pure hypercholesterolemia, unspecified (principal); Z01.818 Encounter for other preprocedural examination
CPT/HCPCS: 93005

== ENCOUNTER 2024-07-11 00:53 | Day surgery (SDC) | payer MEDICARE, SELFPAY ==
--- NOTE | 2024-06-27 08:34 | PC.NURSE ---
Report to the Outpatient Waiting Room, entrance under the green pavilion located off [facility], at time _1 PM on date _07/11/24 . Planned Procedure Time: __3 PM .? Time changes happen often and if your time is changed the preop area will call you the afternoon before. - You and your visitor will be asked to self-screen and do not enter if you have any COVID symptoms. Please call surgeon if you need to reschedule. - A mask is optional within the hospital at this time. Patients may have clear liquids (water, carbonated beverages, clear teas, apple juice) until 3 hours prior to surgery( 1200 NOON) with a maximum of 20 ounces. - No food from midnight until time of surgery and no smoking. This includes no chewing gum, candy or mints. Take only the following medications with a SIP of water on the morning of surgery: ___GABAPENTIN, DO NOT STOP ANY OF YOUR OTHER PRESCRIPTION MEDICATIONS PRIOR TO SURGERY EXCEPT THE FOLLOWING Medications to discontinue per physician ___HOLD ASPIRIN 7 DAYS PRE OP PER DR SANTAMARIA. LAST DOSE 07/03/24 [address]INUE CELECOXIB PER DR SANTAMARIA. Please no make-up, nail namibian, hairspray, perfume, deodorant, or body powder the day of surgery.? No jewelry (including any body piercings) or valuables the day of surgery, leave them at home.? Please take a shower or bath the night before, or the morning of, surgery with an antibacterial soap.? Wear comfortable, loose fitting clothing.? Children are encouraged to wear pajamas. - Jewelry must be removed prior to entering the operating room.? Rings and piercings that are not removed may be cut off. - The hospital will not accept responsibility for valuables.? - Please leave all valuables, including medications, at home the day of surgery. If you are going home after surgery, a licensed driver guide must drive you home.? - NO public transportation without another adult if you receive anesthesia. - We recommend that an adult stay with you for 24 hours following discharge. - We also recommend that you do not drive, make important decision, drink alcoholic beverages, or take any drugs that were not prescribed by your health care provider for at least 24 hours after your discharge time. Hold all vitamins and supplements for __3____ days per __ANESTHESIA LAST DOSE 07/07/24 . Follow any additional instructions given to you from your surgeon. Telephone instructions given to __PATIENT_AND TRACEY and asked if any additional questions and then verbalized understanding. Patient advised to call surgeon office or pre surgery nurse liaison [phone] if any additional questions.
[2024-06-27 08:54] VITALS: BMI 41.8
[2024-07-11] VITALS (7 sets, daily range): BP systolic 129–139; BP diastolic 59–90; PULSE 60–79; RESP 16–20; TEMP 36.6; O2SAT 98–100; BMI 41.0
--- OUTSIDE RECORDS SUMMARY | 2024-07-11 00:58 | XMS_ITS | Encounter Summary ---
Author Organization [facility] Healthcare Address [address] [place] [address] Care Team Providers Care Blood Donor Recruiter Supervisor Name Role Phone Antonio Ren MD Primary Care Provider +[phone] Reason for Visit * Reason Onset Date Comments Med Refill 07/11/2020 Encounter Details Date Type Department Care Team (Late st Contact Info) Description 07/11/2020 Telephone [facility] [place] [facility] [address] [facility] [address] [place] [address] Owen Laguerre MD [address] [place] [address] Med Refill Social History Tobacco Use Types Packs/Day Years Used Date Smoking Tobacco: Former Smokeless Tobacco: Never Alcohol Use Standard Drinks/Week Comments No 0 (1 standard drink = 0.6 oz pur e alcohol) Sex and Gender Information Value Date Recorded Sex Assigned at Not on file 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
--- OUTSIDE RECORDS SUMMARY | 2024-07-11 00:58 | XMS_ITS | Encounter Summary ---
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
--- OUTSIDE RECORDS SUMMARY | 2024-07-11 00:58 | XMS_ITS | Referral Summary ---
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 Gender Identity Not on file Sexual Orientation Not on file Last Filed Vital Signs Vital Sign Reading Time Taken Comments Blood Pressure 140/100 02/17/2024 11:25 AM CDT Pulse 74 02/17/2024 11:25 AM CDT Temperature 36.9 C (98.5 F) 02/17/2024 10:15 AM CDT Respiratory Rate 24 02/17/2024 11:25 AM CDT [...] W WO CONTRAST Routine 04/08/2016 4:35 PM CASINO BANKER from Last 3 Months or Most Recently Relevant to Health Maintenance Results * COLONOSCOPY (02/25/2023 3:39 PM CDT) Anatomical Region Laterality Modality Other Narrative Procedure Note Roland Cerrato MD - 02/25/2023 3:39 PM CDT ENDOSCOPY LAB Patient Name: Jon Martin Procedure Date: 02/25/2023 3:39 PM Date of : 1955 Admit Type: Outpatient Age: 68 Gender: Male Attending MD: Roland Cerrato M.D. Room: [facility] ENDOSCOPY ROOM 04 Note Status: Finalized Procedure: [...] The scope was passed under direct vision.The [id number] was introduced through the anusand advanced to [...] my nurses in the GI office at [phone] ([phone]) for your final pathology results in7 days. - . Attending Participation: I personally performed the entire procedure. Electronically signed by Roland Cerrato MD Roland Cerrato M.D. 02/25/2023 4:03:20 PM Number of Addenda: 0 Note Initiated On: 02/25/2023 3:39 PM us Roland Cerrato MD ENDOSCOPY PROCEDUR ES Final Result * CT Abdomen Pelvis W WO Contrast (04/08/2016 4:35 PM CASINO BANKER) Anatomical Region Laterality Modality Body N/A Computed Tomogra phy 04/08/2016 4:35 PM CASINO BANKER Narrative 04/09/2016 8:24 AM CASINO BANKER DATE OF EXAM: Apr 08 2016 4:35PM Acc#: [id number] ECT 0108 - CT IVP Urogram W/WO DIAGNOSIS: BENIGN PROSTATIC HYPERPLASIA WITH LOWER CLINICAL HISTORY: BENIGN PROSTATE HYPERTROPHY RESULT: \ CT UROGRAM CLINICAL HISTORY 61-year-old man with benign prostatic hypertrophy, constant urinary tract infections every three months. Examination performed using standard CT urography with 125 mL of Optiray 240. FINDINGS Comparison is made with the study of 09/22/2014. Normal project management specialist radiograph. Precontrasted images demonstrate a calculus near [...] THE STUDY WITH REFERENCE TO THE BLADDER. TRAIL MAINTENANCE WORKER: JENNIFER TRANSCRIBE DATE/TIME: Apr 08 2016 8:03P RADIOLOGIST: ZAY HERNÁNDEZ M.D. READ ON: Apr 08 2016 5:04P ORDERING DR: FIDENCIO EAST M.D. THIS DOCUMENT HAS BEEN ELECTRONICALLY SIGNED BY: ZAY HERNÁNDEZ M.D. ON: Apr 09 2016 8:23A Attending: FIDENCIO EAST Requesting: FIDENCIO EAST Requesting Attending Attending ID: [id number] Requesting ID: [id number] Report To 1 ID: Report To 1 Name: , Report To 1 FAX: -- Report To 2 ID: Report To 2 Name: , Report To 2 FAX: -- NextGen Order #: Procedure Note Provider, MD Whitney - 10/06/2016 DATE OF EXAM: Apr 08 2016 4:35PM Acc#: [id number] ECT 0108 - CT IVP Urogram W/WO DIAGNOSIS: BENIGN PROSTATIC HYPERPLASIA WITH LOWER CLINICAL HISTORY: BENIGN PROSTATE HYPERTROPHY RESULT: \ CT UROGRAM CLINICAL HISTORY 61-year-old man with benign prostatic hypertrophy, constant urinary tract infections every three months. Examination performed using standard CT urography with 125 mL of Optiray 240. FINDINGS Comparison is made with the study of 09/22/2014. Normal project management specialist radiograph. Precontrasted images demonstrate a calculus near [...] THE STUDY WITH REFERENCE TO THE BLADDER. TRAIL MAINTENANCE WORKER: JENNIFER TRANSCRIBE DATE/TIME: Apr 08 2016 8:03P RADIOLOGIST: ZAY HERNÁNDEZ M.D. READ ON: Apr 08 2016 5:04P ORDERING DR: FIDENCIO EAST M.D. THIS DOCUMENT HAS BEEN ELECTRONICALLY SIGNED BY: ZAY HERNÁNDEZ M.D. ON: Apr 09 2016 8:23A Attending: FIDENCIO EAST Requesting: FIDENCIO EAST Requesting Attending Attending ID: [id number] Requesting ID: [id number] Report To 1 ID: Report To 1 Name: , Report To 1 FAX: -- Report To 2 ID: Report To 2 Name: , Report To 2 FAX: -- NextGen Order #: us Historical Provider MD MOREJON CT PROCEDURES Final R esult from Last 3 Months or Most Recently Relevant to Health Maintenance Insurance [employer] [facility] OPEN ACCESS MEDICARE COMMERCIAL GENERIC MEDICARE INDIVIDUAL ASSURANCE MEDICARE INDIVIDUAL ASSURANCE Advance Directives For more information, please contact: [phone] * Full Code (Latest Code Status on File) Date Activated Date Inactivated Comments 02/25/2023 3:00 PM 02/25/2023 8:51 PM * Full Code Date Activated Date Inactivated Comments 06/19/2022 1:10 PM 02/25/2023 1:59 PM * Full Code Date Activated Date Inactivated Comments 10/24/2021 10:01 AM 10/24/2021 4:01 PM * Full Code Date Activated Date Inactivated Comments 08/17/2018 9:23 AM 08/17/2018 4:25 PM Care Teams Pneumatic Drum Sander Relationship Specialty Start Date End Date Antonio Ren MD [address] [place] [address] PCP - General 07/29/16
--- OUTSIDE RECORDS SUMMARY | 2024-07-11 00:58 | XMS_ITS | Clinical Summary ---
Author Organization [facility] Address [address] [place] [address] Care Team Providers Care Screen Maker Name Role Phone Antonio Ren MD Primary Care Provider + [phone] Allergies Active Allergy Reactions Criticality Noted Date [...] (08/10/2018): Added automatically from request for surgery [id number] Low back pain with right-sided sciatica 09/24/19 Cervical radiculopathy 10/03/2016 Stenosis, cervical spine 10/03/2016 Lumbar spondylosis 08/29/2016 Cervicalgia 04/09/2016 Thoracic back pain 04/09/2016 Chronic pain 04/04/2016 Surgical History Surgery Date Site/Laterality Comments MA NJX AA&/STRD TFRML EPI LUMBAR/SACRAL 1 LEVEL Corticosteroid Inj Transforaminal Approach Lumbar W/ Fluoroscopic Guidance - Right L4-L5 (Added by TW Conv) MA INJ CERV/THORAC,W/WO CNTRST Corticosteroid Injection Interlaminar Approach Cervical - (Added by TW Conv) MA INJ CERV/THORAC,W/WO CNTRST Corticosteroid Injection Interlaminar Approach Cervical - (Added by TW Conv) MA INJ LUMBAR/SACRAL,W/WO CNTRST Corticosteroid Injection Interlaminar Approach Lumbar - (Added by TW Conv) MA NJX AA&/STRD TFRML EPI CERVICAL/THORACIC 1 LEVEL [...] history of myocardial infarction - (Added by RazorGator Conv) Arthritis Other 1 Family history of arthritis - Relation: Grandparent (Added by RazorGator Conv) Colon cancer Other 1 Cancer Other 2 Family history of malignant neoplasm - Relation: Grandparent (Added by RazorGator Conv) Relation Name Status Comments Father Maternal [...] on file Legal Sex Male 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 Room: [facility] ENDOSCOPY ROOM 04 Note Status: Finalized [...] The scope was passed under direct vision.The [id number] was introduced through the anusand advanced to [...] my nurses in the GI office at [phone] ([phone]) for your final pathology results in7 days. - . Attending Participation: I personally performed the entire procedure. Electronically signed by Roland Cerrato MD Roland Cerrato M.D. 02/25/2023 4:03:20 PM Number of Addenda: 0 Note Initiated On: 02/25/2023 3:39 PM us Roland Cerrato MD ENDOSCOPY PROCEDUR ES Final Result * CT Abdomen Pelvis W WO Contrast (04/08/2016 4:35 PM INDUSTRIAL BOILERMAKER) Anatomical Region Laterality Modality Body N/A Computed Tomogra phy 04/08/2016 4:35 PM INDUSTRIAL BOILERMAKER Narrative 04/09/2016 8:24 AM INDUSTRIAL BOILERMAKER DATE OF EXAM: Apr 08 2016 4:35PM [facility]#: [id number] ECT 0108 - CT IVP Urogram W/WO DIAGNOSIS: BENIGN PROSTATIC HYPERPLASIA WITH LOWER CLINICAL HISTORY: BENIGN PROSTATE HYPERTROPHY RESULT: \ CT UROGRAM CLINICAL HISTORY 61-year-old man with benign prostatic hypertrophy, constant urinary tract infections every three months. Examination performed using standard CT urography with 125 mL of Optiray 240. FINDINGS Comparison is made with the study of 09/22/2014. Normal training director radiograph. Precontrasted images demonstrate a calculus near [...] THE STUDY WITH REFERENCE TO THE BLADDER. INSURANCE OPERATIONS REP: JENNIFER TRANSCRIBE DATE/TIME: Apr 08 2016 8:03P RADIOLOGIST: ZAY HERNÁNDEZ M.D. READ ON: Apr 08 2016 5:04P ORDERING DR: FIDENCIO EAST M.D. THIS DOCUMENT HAS BEEN ELECTRONICALLY SIGNED BY: ZAY HERNÁNDEZ M.D. ON: Apr 09 2016 8:23A Attending: FIDENCIO EAST Requesting: FIDENCIO EAST Requesting Attending Attending ID: [id number] Requesting ID: [id number] Report To 1 ID: Report To 1 Name: , Report To 1 FAX: -- Report To 2 ID: Report To 2 Name: , Report To 2 FAX: -- NextGen Order #: Procedure Note ProviderWhitney MD - 10/06/2016 DATE OF EXAM: Apr 08 2016 4:35PM Acc#: [id number] [facility] 0108 - CT IVP Urogram W/WO DIAGNOSIS: BENIGN PROSTATIC HYPERPLASIA WITH LOWER CLINICAL HISTORY: BENIGN PROSTATE HYPERTROPHY RESULT: \ CT UROGRAM CLINICAL HISTORY 61-year-old man with benign prostatic hypertrophy, constant urinary tract infections every three months. Examination performed using standard CT urography with 125 mL of Optiray 240. FINDINGS Comparison is made with the study of 09/22/2014. Normal training director radiograph. Precontrasted images demonstrate a calculus near [...] THE STUDY WITH REFERENCE TO THE BLADDER. INSURANCE OPERATIONS REP: JENNIFER TRANSCRIBE DATE/TIME: Apr 08 2016 8:03P RADIOLOGIST: ZAY HERNÁNDEZ M.D. READ ON: Apr 08 2016 5:04P ORDERING DR: FIDENCIO EAST M.D. THIS DOCUMENT HAS BEEN ELECTRONICALLY SIGNED BY: ZAY HERNÁNDEZ M.D. ON: Apr 09 2016 8:23A Attending: FIDENCIO EAST Requesting: FIDENCIO EAST Requesting Attending Attending ID: [id number] Requesting ID: [id number] Report To 1 ID: Report To 1 Name: , Report To 1 FAX: -- Report To 2 ID: Report To 2 Name: , Report To 2 FAX: -- NextGen Order #: us Historical Provider MD MOREJON CT PROCEDURES Final R esult from Last 3 Months or Most Recently Relevant to Health Maintenance Insurance [employer] [facility] [employer] OPEN ACCESS MEDICARE COMMERCIAL GENERIC MEDICARE INDIVIDUAL ASSURANCE MEDICARE INDIVIDUAL ASSURANCE Advance Directives For more information, please contact: [phone] * Full Code (Latest Code Status on File) Date Activated Date Inactivated Comments 02/25/2023 3:00 PM 02/25/2023 8:51 PM * Full Code Date Activated Date Inactivated Comments 06/19/2022 1:10 PM 02/25/2023 1:59 PM * Full Code Date Activated Date Inactivated Comments 10/24/2021 10:01 AM 10/24/2021 4:01 PM * Full Code Date Activated Date Inactivated Comments 08/17/2018 9:23 AM 08/17/2018 4:25 PM Care Teams Screen Maker Relationship Specialty Start Date End Date Antonio Ren MD [address] [place] [address] PCP - General 07/29/16
--- OUTSIDE RECORDS SUMMARY | 2024-07-11 00:58 | XMS_ITS | Encounter Summary ---
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
--- OUTSIDE RECORDS SUMMARY | 2024-07-11 00:58 | XMS_ITS | Encounter Summary ---
Author Organization [facility] Healthcare Address [address] [place] [address] Care Team Providers Care Junior Paralegal Name Role Phone Antonio Ren MD Primary Care Provider [phone] Reason for Visit * Reason Onset Date Comments CALL BACK 11/03/2017 Encounter Details Date Type Department Care Team (Late st Contact Info) Description 11/03/2017 Telephone [facility] [place] [facility] [address] [facility] [address] [place] [address] Owen Laguerre MD [address] [place] [address] CALL BACK Social History Tobacco Use Types Packs/Day Years Used Date Smoking Tobacco: Former Sex and Gender Information Value Date Recorded Sex Assigned at Not on file 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
[2024-07-11] MEDS: ACETAMINOPHEN 500 MG TABLET 1000 MG PO (13:21)
[2024-07-11] MEDS: KETOROLAC 15 MG/ML VIAL (*BKC) IV PUSH (13:21)
--- NOTE | 2024-07-11 14:21 | WPDHPUPDATE1 ---
History and Physical Update Update Date/Time: 07/11/24 14:21 History and Physical has been reviewed, including an updated exam of the patient. There are NO changes in the patient's condition. Risks, benefits, and alternatives have been discussed and questions answered. Patient agrees to proceed with procedure.
--- NOTE | 2024-07-11 14:36 | P.PNAN_ITS ---
Anes - Initial Pre Proc Eval Procedure: Operation Date: 07/11/24 14:30 Proposed Procedures p Left Knee Arthroscopy, Partial Medial Meniscectomy - Benji Bonilla MD Date/Time: 07/11/24 14:36 Surgeon: Benji Bonilla MD Pre Op Diagnosis: left knee medial meniscus tear Patient Data Age: 69 Gender: M Height: 1.8 m Weight: 133.5 kg Last Vital Signs Temp 98 F 07/11/24 12:00 Pulse 69 07/11/24 12:00 Resp 16 07/11/24 12:00 BP 139/72 07/11/24 12:00 Pulse Ox 98 07/11/24 12:00 Allergies Allergy/AdvReac Type Severity Reaction Status Date / Time Penicillins Allergy Unknown Unknown Verified 07/11/24 13:36 Home Medications ?Medication ?Instructions ?Recorded ?Confirmed ?Type aspirin 81 mg chewable tablet 81 mg PO DAILY 05/27/24 07/11/24 History celecoxib 200 mg capsule 200 mg PO BID 05/27/24 06/27/24 History cholecalciferol (vitamin D3) 25 25 mcg PO DAILY 05/27/24 07/11/24 History mcg (1,000 unit) capsule gabapentin 600 mg tablet 600 mg PO TID 05/27/24 07/11/24 History mirabegron 50 mg tablet,extended 50 mg PO DAILY 05/27/24 07/11/24 History release 24 hr omeprazole 20 mg capsule,delayed 20 mg PO DAILY 05/27/24 07/11/24 History release pravastatin 80 mg tablet 80 mg PO DAILY 05/27/24 07/11/24 History tamsulosin 0.4 mg capsule 0.4 mg PO DAILY 05/27/24 07/11/24 History acetaminophen 500 mg tablet 500 mg PO Q6H PRN pain 06/27/24 07/11/24 History (Acetaminophen Extra Strength) magnesium 250 mg tablet 250 mg PO BID 06/27/24 07/11/24 History hydrocodone 5 mg-acetaminophen 325 1 - 2 tablet PO Q4-6H PRN pain 7 07/11/24 Rx mg tablet days #30 tabs Patient hx anesthesia problems: none Family hx anesthesia problems: none Results Review: All pre-operative results and documents have been reviewed as part of the pre- operative evaluation. [facility] Past Medical History Medical History History of stress test (~2013) Arthritis Surgical History Surgical History History of urologic surgery (~2023) Family History Family History Mother Heart disease Grandparent Heart disease Grandparent Carcinoma of colon Social History Social History Smoking packs per day: 3 Smoking cigarettes per day: 60.0 Years smoked: 15 Smoking pack-years: 45.00 Smoking status: Former smoker Tobacco type: cigarettes Smoking end date: 06/01/84 Alcohol intake: never Substance use: never Living arrangements: with family Spiritual care concerns: No Anes - Eval Final PreProcedure Day of Procedure 07/11/24 14:36 Patient weight: morbidly obese Lungs: normal air movement Airway: Mallampati scale and special considerations (R upper incisor cap noted. ) Neurological: alert and oriented Last oral intake: >/= 8 hours ASA classification: III Emergent: no Anesthetic plan: proceed Anesthesia type and monitoring: general LMA and standard monitoring Results Review: All pre-operative results and documents have been reviewed as part of the pre- operative evaluation. Hyperlipidemia, CAROLINE on CPAP uncertain of settings. Informed Consent: The patient's anesthetic plan and its attendant risks and benefits were discussed with the patient/family/POA. Questions were solicited and answers provided to the satisfaction of the patient/family/POA.
[2024-07-11] MEDS: ceFAZolin 3 GM/D5W 100 ML 100 ML IVPB (14:39)
[2024-07-11] MEDS: BUPIVACAINE/EPINEPHRINE 0.5% 50 ML VIAL 15 ML INFILTRATE (15:05)
[2024-07-11] MEDS: LACTATED RINGERS 1,000 ML 30 ML IV CONT ×2 (15:40)
--- NOTE | 2024-07-11 15:50 | W.PM.PROC2 ---
Procedure Note - Detailed Date of Procedure 07/11/24 Pre-op Diagnosis Left knee medial meniscus tear Post-op Diagnosis Same Procedure Performed Arthroscopic partial medial meniscectomy, left knee. Surgeon Benji Bonilla MD Anesthesia General Findings Radial split posterior horn meniscus tear medially. Significant degeneration of the meniscus. Partial meniscectomy of the posterior horn tapered to a stable rim along the medial aspect of the meniscus. There was significant chondromalacia on the medial femur grade 2 and 3 and then a small area grade 4. The trochlea also showed grade 3 damage approaching grade 4 in small areas. The patella grade 2. The lateral compartment showed minimal degenerative changes grade 1 on the tibia. The ACL was intact. There was significant diffuse synovitis particularly in the suprapatellar pouch with hyperemic proliferative synovial tissue. Description of Procedure The patient was identified and the surgical site confirmed and signed in the preoperative holding area. Antibiotics were started per protocol, and the patient was brought to the operative room and transferred to the OR table. A general anesthetic was administered. Supine position with the operative lower extremity position in the leg izaguirre after placement of a well padded tourniquet. The leg support was lowered and the contralateral limb was supported with a soft bolster. The knee was prepped and draped in the usual sterile fashion. A time-out was performed. The portal sites were marked and infiltrated with 0.5% Marcaine 20 mL. The limb was exsanguinated and the tourniquet inflated to 300 mL Hg. Standard inferolateral and inferomedial portals were established. Inflow was obtained with the saline pump. The camera was introduced. Diagnostic inspection of the joint was accomplished. The meniscus was debrided with the arthroscopic shaver and punches until stable. The radiofrequency probe was also used for further d?bridement. The arthroscopic instruments were removed. The tourniquet released and wounds closed with subcutaneous 4-0 Monocryl absorbable suture. Steri strips and a sterile dressing were applied. A light elastic wrap was placed. The patient was extubated and brought to the recovery room in stable condition. Estimated Blood Loss 5 Drains No Complications No immediate complications Condition Stable Disposition PACU [facility] Billing Surgery - Charge Forward: Surgery Billing
[2024-07-11] MEDS: oxyCODONE HCL (*CRX) 5 MG TAB IR PO (16:29)
== END 2024-07-11 16:58 | disposition home or self-care (01) ==
PROVIDERS: PCP Internal Medicine; Visit Provider Orthopaedic Surgery
PROC: (CPT 29870; principal; 2024-07-11 14:30)
DX: S83.242A Other tear of medial meniscus, current injury, left knee, initial encounter (principal); M94.262 Chondromalacia, left knee; M65.862 Other synovitis and tenosynovitis, left lower leg; M19.90 Unspecified osteoarthritis, unspecified site; W01.0XXA Fall on same level from slipping, tripping and stumbling without subsequent striking against object, initial encounter; E66.01 Morbid (severe) obesity due to excess calories; Z68.41 Body mass index [BMI] 40.0-44.9, adult; Z79.82 Long term (current) use of aspirin; Z79.891 Long term (current) use of opiate analgesic; Z98.890 Other specified postprocedural states; Z87.891 Personal history of nicotine dependence; Z80.0 Family history of malignant neoplasm of digestive organs; Z82.49 Family history of ischemic heart disease and other diseases of the circulatory system
CPT/HCPCS: 29881; A9270; J0330; J0690; J1100; J1596; J1885; J2003; J2405; J2704; J3010; J7120

== ENCOUNTER 2024-07-15 11:03 | Outpatient (RCR) | payer MEDICARE, SELFPAY ==
--- NOTE | 2024-07-15 11:34 | OPREHPOC ---
Outpatient Therapy Plan of Care This is a Multidisciplinary Plan of Care that may contain components documented by all disciplines (PT, OT, and ST.) PT Problem 1 PT Problem #1 Knowledge Deficit PT Goal 1 Goal / Goal Update 1. independent and compliant with HEP Target Visit 6 PT Problem 2 PT Problem #2 Pain PT Goal 1 Goal / Goal Update 1. no pain in the L knee Target Visit 12 PT Problem 3 PT Problem #3 Impaired Range of Motion PT Goal 1 Goal / Goal Update 1. 0-125 degrees active L knee rom Target Visit 12 PT Problem 4 PT Problem #4 Impaired Strength PT Goal 1 Goal / Goal Update 1. 4+/5 L hip flex 2. 5/5 L knee strength Target Visit 12 PT Problem 5 PT Problem #5 Impaired Functional Mobility PT Goal 1 Goal / Goal Update 1. LEFS to display 20% or less functional deficits 2. patient to ambulate with normal gait mechanics on level surface 3. patient to ambulate up and down steps with reciprocal mechanics Target Visit 12
--- NOTE | 2024-07-15 11:34 | PTOPEVAL1 ---
Assessment and note entered by JT File, PT Evaluation Information Assessment Status Evaluation Diagnosis L partial medial meniscectomy ICD-10 Condition Codes (PT) Pain in left knee M25.562,Encounter for other orthopedic aftercare Z47.89 Other ICD-10 Condition Codes ( Z48.89 PT) Onset 07/11/24 Subjective Information patient reports he had a L partial medial meniscectomy on 07/11/24. he reports he injured the knee tripping over a cat last year, and eventually had to have the surgery done. he reports since surgery it has been alright other than when trying to make a turn. he reports he has not done much since surgery, and has spent a lot of time on the couch. 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. he has to do a lot of walking and time on his feet daily. Assessment PT Clinical Summary mr. foley is a 69 yo man who presents to skilled PT services for evaluation and treatment after L arthroscopic partial meniscectomy. he presents today with decreased rom, decreased strength, pain, and abnormal gait mechanics. he would benefit from continued skilled PT services to improve his objective/functional deficits and progress towards a return to his prior level functional activity performance and quality of life. Plan of Care Interventions Electrical Stimulation,Gait Training,Hot Pack/Cold Pack,Intermittent Compression Pump,Manual Therapy ,Neuro Re-education,Patient/Caregiver Education, Therapeutic Activities,Therapeutic Exercise PT Services Indicated Yes Treatment Frequency and 3x weekly for 12 visits Duration These treatments will address the objective and functional deficits as defined above. The patient will be advanced safely and appropriately in order for the patient to progress towards his/her prior level of function. Additional exercises will be introduced and as well as a comprehensive home exercise program upon discharge, if needed, ?to ensure carryover of functional gains achieved in the clinic. This treatment plan has been reviewed and agreement upon by the patient.
--- NOTE | 2024-08-05 11:04 | OPREHPOC ---
Outpatient Therapy Plan of Care This is a Multidisciplinary Plan of Care that may contain components documented by all disciplines (PT, OT, and ST.) PT Problem 1 PT Problem #1 Knowledge Deficit PT Goal 1 Goal / Goal Update 1. independent and compliant with HEP Target Visit 6 Progress Partially Met PT Goal 2 Goal / Goal Update Pt performs exercises most days Target Visit 18 PT Problem 2 PT Problem #2 Pain PT Goal 1 Goal / Goal Update 1. no pain in the L knee Target Visit 12 Progress Not Met PT Goal 2 Goal / Goal Update Continue Target Visit 18 PT Problem 3 PT Problem #3 Impaired Range of Motion PT Goal 1 Goal / Goal Update 1. 0-125 degrees active L knee rom Target Visit 12 Progress Not Met PT Goal 2 Goal / Goal Update Continue Target Visit 18 PT Problem 4 PT Problem #4 Impaired Strength PT Goal 1 Goal / Goal Update 1. 4+/5 L hip flex 2. 5/5 L knee strength Target Visit 12 Progress Met PT Goal 2 Goal / Goal Update 1. 5/5 hip flexion bilat Target Visit 18 PT Problem 5 PT Problem #5 Impaired Functional Mobility PT Goal 1 Goal / Goal Update 1. LEFS to display 20% or less functional deficits 2. patient to ambulate with normal gait mechanics on level surface 3. patient to ambulate up and down steps with reciprocal mechanics Target Visit 12 Progress Not Met PT Goal 2 Goal / Goal Update Continue Target Visit 18
--- NOTE | 2024-08-05 11:04 | PTOPPROG ---
Assessment and note entered by Ramonita Ruffin, PT Evaluation Information Assessment Status Progress Diagnosis L partial medial meniscectomy ICD-10 Condition Codes (PT) Pain in left knee M25.562,Encounter for other orthopedic aftercare Z47.89 Other ICD-10 Condition Codes ( Z48.89 PT) Onset 07/11/24 Subjective Information Mr. Martin feels like his pain and ROM have improved the most since beginning therapy. He feels like he hasn't seen as much improvement in his strength and balance since beginning therapy, and notes that his knee feels like it will buckle when he walks and that he still trips a lot. When climbing stairs he is able to use a reciprocal pattern initially but due to fatigue and imbalance he transitions to a step over step pattern and favors his R knee. He returns back to his doctor on the . Assessment PT Clinical Summary Mr. Martin has attended 10 total skilled therapy visits addressing L knee strength and ROM following a partial medial meniscectomy on 07/11/24 . He has made mild improvements in his knee flexion ROM and strength, but is still lacking full knee extension. He also continues to experience difficulty balancing, tripping frequently and also feels like his knee wants to give out. He can benefit from continued skilled PT intervention to improve on these deficits and return to prior level of function. Plan of Care Interventions Electrical Stimulation,Gait Training,Hot Pack/Cold Pack,Intermittent Compression Pump,Manual Therapy ,Neuro Re-education,Patient/Caregiver Education, Therapeutic Activities,Therapeutic Exercise,Self- Care/Home Management PT Services Indicated Yes Treatment Frequency and 3x/week for 8 additional visits Duration These treatments will address the objective and functional deficits as defined above. The patient will be advanced safely and appropriately in order for the patient to progress towards his/her prior level of function. Additional exercises will be introduced and as well as a comprehensive home exercise program upon discharge, if needed, ?to ensure carryover of functional gains achieved in the clinic. This treatment plan has been reviewed and agreement upon by the patient.
--- NOTE | 2024-08-24 10:59 | OPREHPOC ---
Outpatient Therapy Plan of Care This is a Multidisciplinary Plan of Care that may contain components documented by all disciplines (PT, OT, and ST.) PT Problem 1 PT Problem #1 Knowledge Deficit PT Goal 1 Goal / Goal Update 1. independent and compliant with HEP Target Visit 6 Progress Met PT Goal 2 Goal / Goal Update . Target Visit 18 PT Problem 2 PT Problem #2 Pain PT Goal 1 Goal / Goal Update 1. no pain in the L knee Target Visit 12 Progress Partially Met PT Goal 2 Goal / Goal Update . Target Visit 18 PT Problem 3 PT Problem #3 Impaired Range of Motion PT Goal 1 Goal / Goal Update 1. 0-125 degrees active L knee rom Target Visit 12 Progress Met PT Goal 2 Goal / Goal Update . Target Visit 18 PT Problem 4 PT Problem #4 Impaired Strength PT Goal 1 Goal / Goal Update 1. 4+/5 L hip flex 2. 5/5 L knee strength Target Visit 12 Progress Met PT Goal 2 Goal / Goal Update 1. 5/5 hip flexion bilat Target Visit 18 Progress Met PT Problem 5 PT Problem #5 Impaired Functional Mobility PT Goal 1 Goal / Goal Update 1. LEFS to display 20% or less functional deficits . met 2. patient to ambulate with normal gait mechanics on level surface 3. patient to ambulate up and down steps with reciprocal mechanics Target Visit 12 Progress Met PT Goal 2 Goal / Goal Update . Target Visit 18
--- NOTE | 2024-08-24 10:59 | PTOPDC ---
Assessment and note entered by JT File, PT Evaluation Information Assessment Status Discharge Diagnosis L partial medial meniscectomy ICD-10 Condition Codes (PT) Pain in left knee M25.562,Encounter for other orthopedic aftercare Z47.89 Other ICD-10 Condition Codes ( Z48.89 PT) Onset 07/11/24 Subjective Information patient reports the L knee feels Good today. he reports he has had no more than 2/10 pain in the L knee in the last week. he admits he needs to get out and walk more, but he does not like the cold weather. he reports he does not feel there is anything left for us to work on in PT at this time , and that he can continue on his own with his HEP at home. Reported Pain Level Pain Score 0: Self Report Pain Score 0: Self Report Assessment PT Clinical Summary mr. foley presents to skilled PT services for his 18th skilled PT visit. he displays significant improvements in rom, strength, ambulation mechanics, and stair ambulation performance. he has met HEP goal, pain goal, rom goal, strength goal, and functional goals today. he is ready to DC skilled PT today, and will continue with HEP independent at home. Plan of Care PT Services Indicated Yes
== END 2024-08-24 11:20 | disposition home or self-care (01) ==
LOC: CHSPT 11:03
PROVIDERS: PCP Internal Medicine; Visit Provider Orthopaedic Surgery
DX: Z48.89 Encounter for other specified surgical aftercare (principal); M25.562 Pain in left knee
CPT/HCPCS: 97110; 97112; 97161; 97530

== ENCOUNTER 2025-03-17 10:26 | Outpatient (CLI) | payer MEDICARE, SELFPAY ==
--- OUTSIDE RECORDS SUMMARY | 2025-03-17 11:07 | XMS_ITS | Clinical Summary ---
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 Overview (08/10/2018): Added automatically from request for surgery [id number] Low back pain with right-sided sciatica 09/24/19 18 Cervical radiculopathy 10/03/2016 Stenosis, cervical spine 10/03/2016 Lumbar spondylosis 08/29/2016 Cervicalgia 04/09/2016 Thoracic back pain 04/09/2016 Chronic pain 04/04/2016 Surgical History Surgery Date Site/Laterality Comments [place] NJX AA&/STRD TFRML EPI LUMBAR/SACRAL 1 LEVEL Corticosteroid Inj Transforaminal Approach Lumbar W/ Fluoroscopic Guidance - Right L4-L5 (Added by TW Conv) [place] INJ CERV/THORAC,W/WO CNTRST Corticosteroid Injection Interlaminar Approach Cervical - (Added by TW Conv) [place] INJ CERV/THORAC,W/WO CNTRST Corticosteroid Injection Interlaminar Approach Cervical - (Added by TW Conv) [place] INJ LUMBAR/SACRAL,W/WO CNTRST Corticosteroid Injection Interlaminar Approach Lumbar - (Added by TW Conv) [place] NJX AA&/STRD TFRML EPI CERVICAL/THORACIC 1 LEVEL [...] (hyperlipidemia) Flores esophagus Colon polyp Kidney stone Arthritis Family History Medical History Relation Name Comments Arthritis Father Family history of arthritis - (Added by TW Conv) Asthma Father Family history of asthma - (Added by TW Conv) Colon cancer Maternal Grandmother Heart attack Mother Family history of myocardial infarction - (Added by TW Conv) Arthritis Other 1 Family history of arthritis - Relation: Grandparent (Added by TW Conv) Colon cancer Other 1 Cancer Other 2 Family history of malignant neoplasm - Relation: Grandparent (Added by TW Conv) Relation Name Status Comments Father Maternal [...] you have a drink containing alcohol? Never 11/11/2024 Q2: How many drinks containi ng alcohol do you have on a typical day when you are drinking? Patient does not drink Q3: How often do you have si x or more drinks on one occasion? Never 11/11/2024 Hunger Vital Sign Answer Date Recorded Within [...] making you feel afraid or unsafe? 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 Gender Identity Not on file Sexual Orientation Not on file Obstetrics History Last Filed Vital Signs Vital Sign Reading Time Taken Comments Blood Pressure 136/77 11/14/2024 12:34 PM CDT Pulse 76 11/14/2024 12:34 PM CDT Temperature 36.3 C (97.4 F) 11/14/2024 11:58 AM CDT Respiratory Rate 22 11/14/2024 12:34 PM CDT Oxygen Saturation 97% 11/14/2024 12:34 PM CDT Inhaled Oxygen Concentration - - Weight 136.1 kg (300 lb) 11/14/2024 11:58 AM CDT Height 180.3 cm (5' 11) 11/14/2024 11:58 AM CDT Body Mass Index 41.84 11/14/2024 11:58 AM CDT Plan of Treatment Health Maintenance Due Date Last Done Comments Depression Screening 1955 Hepatitis C Screening 1955 Hepatitis B Screening 02/02/1972 Abdominal Aortic Aneurysm (A AA) Screen 2019 04/08/2016, 09/22/2014 Well Visit 65+ 2019 Pneumococcal vaccine 65+ (3 of 3 - PCV20 or PCV21) 03/07/2021 03/07/2016, 01/25/2014 DTaP/Tdap/Td Vaccine (2 - Td or Tdap) 06/20/2023 06/20/2013 Influenza Vaccine (#1) 2025 , 03/29/2018, 01/28/2017, Additional history exists Fall Risk Assessment 11/14/2025 11/14/2024 Colon Cancer Screening-Colonoscopy 02/25/2033 02/25/2023 Zoster Vaccine [...] W WO CONTRAST Routine 04/08/2016 4:35 PM SCHOOL AIDE from Last 3 Months or Most Recently Relevant to Health Maintenance Results * COLONOSCOPY (02/25/2023 3:39 PM CDT) Anatomical Region Laterality Modality Other Narrative Procedure Note Roland Cerrato MD - 02/25/2023 3:39 PM CDT ENDOSCOPY LAB Patient Name: Jon Martin Procedure Date: 02/25/2023 3:39 PM Date of : 1955 Admit Type: Outpatient Age: 68 Gender: Male Attending MD: Roland Cerrato M.D. Room: [facility] ENDOSCOPY ROOM 04 Note Status: Finalized Procedure: [...] The scope was passed under direct vision.The [id number] was introduced through the anusand advanced to [...] my nurses in the GI office at [phone] ([phone]) for your final pathology results in7 days. - . Attending Participation: I personally performed the entire procedure. Electronically signed by Roland Cerrato MD Roland Cerrato M.D. 02/25/2023 4:03:20 PM Number of Addenda: 0 Note Initiated On: 02/25/2023 3:39 PM us Roland Cerrato MD ENDOSCOPY PROCEDUR ES Final Result * CT Abdomen Pelvis W WO Contrast (04/08/2016 4:35 PM SCHOOL AIDE) Anatomical Region Laterality Modality Body N/A Computed Tomogra phy 04/08/2016 4:35 PM SCHOOL AIDE Narrative 04/09/2016 8:24 AM SCHOOL AIDE DATE OF EXAM: Apr 08 2016 4:35PM Acc#: [id number] ECT 0108 - CT IVP Urogram W/WO DIAGNOSIS: BENIGN PROSTATIC HYPERPLASIA WITH LOWER CLINICAL HISTORY: BENIGN PROSTATE HYPERTROPHY RESULT: \ CT UROGRAM CLINICAL HISTORY 61-year-old man with benign prostatic hypertrophy, constant urinary tract infections every three months. Examination performed using standard CT urography with 125 mL of Optiray 240. FINDINGS Comparison is made with the study of 09/22/2014. Normal puppy sitter radiograph. Precontrasted images demonstrate a calculus near [...] THE STUDY WITH REFERENCE TO THE BLADDER. STEEL DIE PRINTER: JENNIFER TRANSCRIBE DATE/TIME: Apr 08 2016 8:03P RADIOLOGIST: ZAY HERNÁNDEZ M.D. READ ON: Apr 08 2016 5:04P ORDERING DR: IFDENCIO EAST M.D. THIS DOCUMENT HAS BEEN ELECTRONICALLY SIGNED BY: ZAY HERNÁNDEZ M.D. ON: Apr 09 2016 8:23A Attending: FIDENCIO EAST Requesting: FIDENCIO EAST Requesting Attending Attending ID: [id number] Requesting ID: [id number] Report To 1 ID: Report To 1 Name: , Report To 1 FAX: -- Report To 2 ID: Report To 2 Name: , Report To 2 FAX: -- NextGen Order #: Procedure Note Provider, MD Whitney - 10/06/2016 DATE OF EXAM: Apr 08 2016 4:35PM Acc#: [id number] ECT 0108 - CT IVP Urogram W/WO DIAGNOSIS: BENIGN PROSTATIC HYPERPLASIA WITH LOWER CLINICAL HISTORY: BENIGN PROSTATE HYPERTROPHY RESULT: \ CT UROGRAM CLINICAL HISTORY 61-year-old man with benign prostatic hypertrophy, constant urinary tract infections every three months. Examination performed using standard CT urography with 125 mL of Optiray 240. FINDINGS Comparison is made with the study of 09/22/2014. Normal puppy sitter radiograph. Precontrasted images demonstrate a calculus near [...] THE STUDY WITH REFERENCE TO THE BLADDER. STEEL DIE PRINTER: JENNIFER TRANSCRIBE DATE/TIME: Apr 08 2016 8:03P RADIOLOGIST: ZAY HERNÁNDEZ M.D. READ ON: Apr 08 2016 5:04P ORDERING DR: FIDENCIO EAST M.D. THIS DOCUMENT HAS BEEN ELECTRONICALLY SIGNED BY: ZAY HERNÁNDEZ M.D. ON: Apr 09 2016 8:23A Attending: FIDENCIO EAST Requesting: FIDENCIO EAST Requesting Attending Attending ID: [id number] Requesting ID: [id number] Report To 1 ID: Report To 1 Name: , Report To 1 FAX: -- Report To 2 ID: Report To 2 Name: , Report To 2 FAX: -- NextGen Order #: us Historical Provider MD MOREJON CT PROCEDURES Final R esult from Last 3 Months or Most Recently Relevant to Health Maintenance Insurance [employer] [facility] [employer] OPEN ACCESS MEDICARE COMMERCIAL GENERIC MEDICARE INDIVIDUAL ASSURANCE MEDICARE INDIVIDUAL ASSURANCE Advance Directives For more information, please contact: [phone] * Full Code (Latest Code Status on File) Date Activated Date Inactivated Comments 02/25/2023 3:00 PM 02/25/2023 8:51 PM * Full Code Date Activated Date Inactivated Comments 06/19/2022 1:10 PM 02/25/2023 1:59 PM * Full Code Date Activated Date Inactivated Comments 10/24/2021 10:01 AM 10/24/2021 4:01 PM * Full Code Date Activated Date Inactivated Comments 08/17/2018 9:23 AM 08/17/2018 4:25 PM Care Teams Cloth Painter Relationship Specialty Start Date End Date Antonio Ren MD [address], [place] [id number] PCP - General 07/29/16
--- OUTSIDE RECORDS SUMMARY | 2025-03-17 11:07 | XMS_ITS | Encounter Summary ---
Author Organization [facility] Healthcare Address [address] [place] [address] Care Team Providers Care Career Representative Name Role Phone Antonoi Ren MD Primary Care Provider + [phone] Reason for Visit * Reason Onset Date Comments Med Refill 07/11/2020 Encounter Details Date Type Department Care Team (Late st Contact Info) Description 07/11/2020 Telephone [facility] [place] [facility] [address] [facility] [address] [place] [id number] Owen Laguerre MD [address] [place] [address] Med Refill Social History Tobacco Use Types Packs/Day Years Used Date Smoking Tobacco: Former Smokeless Tobacco: Never Alcohol Use Standard Drinks/Week Comments No 0 (1 standard drink = 0.6 oz pur e alcohol) Sex and Gender Information Value Date Recorded Sex Assigned at Not on file 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
--- OUTSIDE RECORDS SUMMARY | 2025-03-17 11:07 | XMS_ITS | Encounter Summary ---
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
--- OUTSIDE RECORDS SUMMARY | 2025-03-17 11:07 | XMS_ITS | Encounter Summary ---
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 Author CCM Chronic Pain Care Plan Chronic Care Management Improving( 9:34 AM CDT) No Sulema staples, Carey Johnston, LIS Note: Problem: Chronic Pain Goals: 1. Minimize [...] Primary documented in this encounter Care Teams Collar Tacker Relationship Specialty Start Date End Date Antonio Ren MD [address] [id number] PCP - General 07/29/16 documented as of this encounter
--- OUTSIDE RECORDS SUMMARY | 2025-03-17 11:07 | XMS_ITS | Encounter Summary ---
Author Organization [facility] Healthcare Address [address] [place] [address] Care Team Providers Care Electric Cutter Operator Name Role Phone Antonio Ren MD Primary Care Provider + [phone] Reason for Visit * Reason Onset Date Comments CALL BACK 11/03/2017 Encounter Details Date Type Department Care Team (Late st Contact Info) Description 11/03/2017 Telephone [facility] [place] [facility] [address] [facility] [address] [place] [address] Owen Laguerre MD [address] [place] [address] CALL BACK Social History Tobacco Use Types Packs/Day Years Used Date Smoking Tobacco: Former Sex and Gender Information Value Date Recorded Sex Assigned at Not on file Legal Sex Male 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
--- NOTE | 2025-04-11 17:49 | WPDHOLTEREM ---
Holter/Event Monitor Holter/Event Monitor Date of procedure: 03/17/25 Holter/Event Procedure: Event Monitor Indications: Syncope Conclusion: 1. 13 days event monitor on 03/17/25. 2. Predominant rhythm is sinus rhythm. HR range 21-185 bpm; average HR 78 bpm. HR at 21 bpm was on 03/17/25 at 12:11 pm. 3. There are rare premature supraventricular complexes, rare supraventricular couplets, and rare supraventricular triplets. There are 4 episodes of supraventriuclar tachycardia with fastest at 185 bpm and longest lasting 15 beats. 4. There are rare premature ventricular complexes and rare ventricular couplets. No ventricular tachycardia. 5. There is 1 episode of 2nd degree AV block but difficult to ascertain given baseline artifact on 03/17/25 at 12:11 pm lasting 5 seconds total. 6. No symptoms available for correlation.
== END 2025-03-17 10:27 | disposition home or self-care (01) ==
PROVIDERS: PCP Internal Medicine; Visit Provider Internal Medicine
DX: R55 Syncope and collapse (principal); I44.1 Atrioventricular block, second degree
CPT/HCPCS: 93246